=== PATIENT | male | born 1995 | race Caucasian/White ===

== ENCOUNTER 2018-10-02 13:50 | Observation (INO) ==
[2018-10-02 15:55] LABS: BASOPHILS % (AUTO) 0.3 % (0.2-1.0); HEMATOCRIT 47.9 % (42.0-54.0); HEMOGLOBIN 16.6 g/dL (13.5-18.0); LYMPHOCYTES # (AUTO) 0.9 X10^3/uL (1.3-2.9); LYMPHOCYTES % (AUTO) 10.3 % (21.0-51.0); MEAN CORPUSCULAR HEMOGLOBIN 30.7 pg (27.0-34.0); MEAN CORPUSCULAR HGB CONC 34.8 g/dL (33.0-35.0); MEAN CORPUSCULAR VOLUME 88.3 fL (80.0-100.0); MEAN PLATELET VOLUME 7.5 fL (7.4-11.0); MONOCYTES # (AUTO) 0.3 x10^3/uL (0.3-0.8); MONOCYTES % (AUTO) 3.4 % (0.0-13.0); NEUTROPHILS # (AUTO) 7.5 x10^3/uL (2.2-4.8); PLATELET COUNT 172 X10^3/uL (150.0-450.0); RED BLOOD COUNT 5.42 X10^6/uL (4.7-6.0); RED CELL DISTRIBUTION WIDTH 12.6 % (11.6-16.5); WHITE BLOOD COUNT 8.8 X10^3/uL (3.6-10.0)
[2018-10-02 16:17] LABS: ALANINE AMINOTRANSFERASE 14 Units/L (12-78); ALBUMIN 4.4 g/dL (3.4-5.0); ALKALINE PHOSPHATASE 71 Units/L (46-116); ASPARTATE AMINO TRANSFERASE 12 Units/L (15-37); BLOOD UREA NITROGEN 14 mg/dL (7-18); CALCIUM 9.7 mg/dL (8.5-10.1); CARBON DIOXIDE 26.6 mmol/L (21-32); CHLORIDE 101 mmol/L (98-107); FREE T4 (FREE THYROXINE) 1.11 ng/dL (0.76-1.46); MAGNESIUM 1.7 mg/dL (1.7-2.9); SODIUM 138 mmol/L (136-145); TOTAL PROTEIN 7.9 g/dL (6.4-8.2); TSH (3RD GENERATION) 0.543 uIU/mL (0.358-3.74); eGFR NON BLACK RACES > 60 (>60)
[2018-10-02 16:23] LABS: CKMB % 1.4 % (<4); CREATINE KINASE 70 Units/L (39-308); CREATINE KINASE MB < 1.0 ng/mL (0-4.0); TROPONIN I < 0.02 ng/mL (0-1.5)
[2018-10-02] MEDS: NS 1000 ML 1,000 ML IV SCH (17:00)
[2018-10-02] MEDS: PEPCID 20 MG IV PREMIX* 20 MG/50 ML BAG IV SCH (17:00)
[2018-10-02 17:06] LABS: AMYLASE 83 Units/L (25-115); LIPASE 100 Units/L (73-393)
--- NOTE | 2018-10-02 17:13 | DR.H&P ---
H&P - History & Physical for Day of: H&P Date: 10/02/18 - Chief Complaint Chief Complaint: chest pain - History of Present Illness History of Present Illness: 23 [address] CARRILLO OFFICE AFTER PRESENTING WITH CO CHEST PAIN, SEEN IN ER ON TUESDAY. HAD NORMAL CARDIAC ENZYMES AND ABNORMAL EKG, CHEST XRAY NORMAL. PT STATED HIS BLOOD PRESSURE WAS ELEVATED PRIOR TO ER VISIT. PT REPORTS BP AT HOME NORMAL 120'S/70S. BP 150/90 IN OFFICE. PT DENIES ANY HX OF HTN OR CARDIAC DISEASE, NON SMOKER. PT REPORTS WORKING OUTSIDE IN THE HEAT, DENIES DIZZINESS OR CRAMPING IN LIMBS. PT ADMITTED FOR EVALUATON AND TREATMENT OF CHEST PAIN. - Past Medical History Past Medical History: denies: CHF, Coronary Artery Disease, Hypertension - Family History Family Medical History: Hypertension - Social History Does patient currently use any type of tobacco product: No Have you used tobacco products in the last 12 months: No Type of Tobacco Use: None Does any household member use tobacco: No Alcohol Use: Rarely Drug Use: None - Medications Home Medications: No Known Drug Allergies Allergy (Verified 10/01/18 15:14) - Review of Systems Constitutional: No Symptoms Reported Eyes: No Symptoms Reported ENT: No Symptoms Reported Respiratory: No Symptoms Reported Cardiovascular: Chest Pain Gastrointestinal: No Symptoms Reported Genitourinary: No Symptoms Reported Musculoskeletal: No Symptoms Reported Skin: No Symptoms Reported Neurological: No Symptoms Reported - Physical Exam Vital Signs: Temperature 97.6 F Pulse Rate [Left Brachial] 66 Respiratory Rate 18 Blood Pressure [Left Arm] 136/86 Blood Pressure 145/82 O2 Sat by Pulse Oximetry 98 Oriented: Normal Eyes: Normal Ear: Normal Nose: Normal Throat: Normal Respiratory: Clear Throughout Cardiovascular: Normal. negative: Edema : Normal Auscultation: Bowel Sounds: Normal Palpation: Normal Tenderness: Normal Skin: Normal Musculoskeletal: Normal Psychiatric: Anxiety Affect: Anxious Speech Pattern: Clear, Appropriate - Assessment/Plan (1) Chest pain Status: Acute Plan: ADMIT SERIAL CE AND EKG. CXR ON ADMISSION, IV HYDRATION. BP CONTROL, CONTINUOUS CARDIAC MONITORING. ASPIRIN, STATIN. PRN SUPPLEMENTAL O2, PEPCID (2) Elevated blood pressure reading without diagnosis of hypertension Status: Acute (3) Abnormal LFTs Status: Acute - Allergies Allergies/Adverse Reactions: Allergies Allergy/AdvReac Type Severity Reaction Status Date / Time No Known Drug Allergies Allergy Verified 10/01/18 15:14
[2018-10-02] MEDS ORDERED: LEVSIN/MAALOX/LIDOC VISC PO ONE (17:18)
[2018-10-02] MEDS ORDERED: K-DUR TAB 20 MEQ PO PRN (18:19)
[2018-10-02] MEDS ORDERED: POTASSIUM CHLORIDE LIQ 20 MEQ UDC PO PRN (18:19)
[2018-10-02] MEDS ORDERED: K-RIDER 10 MEQ/NS 100 ML 10 MEQ/100 ML BAG IV PRN (18:19)
[2018-10-02] MEDS ORDERED: MICRO K EXTEN CAP 10 MEQ PO PRN (18:19)
[2018-10-02] MEDS ORDERED: POTASSIUM CHL 40 MEQ/NS 0.45% 500 ML IV PRN (18:19)
[2018-10-02] MEDS ORDERED: KLOR-CON PO PRN (18:19)
[2018-10-02] MEDS ORDERED: POTASSIUM CHL 60 MEQ/NS 0.45% 500 ML IV PRN (18:19)
[2018-10-02 18:24] VITALS: BMI 19.0
[2018-10-02] MEDS: ASPIRIN PO SCH (18:59)
[2018-10-02] MEDS ORDERED: CRESTOR TAB 10 MG PO SCH (21:00)
[2018-10-02] MEDS: MAGNESIUM SULFATE 1 GRAM/100 mL PREMIX 1 GM/100 ML BAG IV PRN ×2 (21:11→22:02)
[2018-10-02 21:52] LABS: BILIRUBIN,URINE NEGATIVE (NEGATIVE); BLOOD/HEMOGLOBIN,URINE NEGATIVE (NEGATIVE); GLUCOSE, URINE NEGATIVE (NEGATIVE); KETONES,URINE 3+ (NEGATIVE); LEUKOCYTE ESTERASE ,URINE NEGATIVE (NEGATIVE); NITRITES,URINE NEGATIVE (NEGATIVE); PROTEIN,URINE NEGATIVE (NEGATIVE); UROBILINOGEN,URINE 1+ (NORMAL)
[2018-10-02 22:03] LABS: APPEARANCE,URINE CLEAR (CLEAR); BACTERIA,URINE NEGATIVE /HPF (NEGATIVE); COLOR,URINE DARK YELLOW (YELLOW); MUCUS,URINE FEW /HPF (NEGATIVE); RBC,URINE NONE SEEN /HPF (NONE SEEN); SQUAMOUS EPITHELIAL CELL,UR NEGATIVE /HPF (NEGATIVE)
[2018-10-02 22:14] LABS: CKMB % 1.6 % (<4); CREATINE KINASE 63 Units/L (39-308); CREATINE KINASE MB < 1.0 ng/mL (0-4.0); TROPONIN I < 0.02 ng/mL (0-1.5)
[2018-10-03] MEDS: NS 1000 ML 1,000 ML IV SCH ×4 (01:01→10:41)
[2018-10-03 06:22] LABS: BASOPHILS % (AUTO) 0.6 % (0.2-1.0); EOSINOPHILS % (AUTO) 0.5 % (0.9-2.9); HEMATOCRIT 43.4 % (42.0-54.0); HEMOGLOBIN 15.4 g/dL (13.5-18.0); LYMPHOCYTES # (AUTO) 1.3 X10^3/uL (1.3-2.9); LYMPHOCYTES % (AUTO) 26.1 % (21.0-51.0); MEAN CORPUSCULAR HGB CONC 35.6 g/dL (33.0-35.0); MEAN CORPUSCULAR VOLUME 87.1 fL (80.0-100.0); MEAN PLATELET VOLUME 7.8 fL (7.4-11.0); MONOCYTES # (AUTO) 0.4 x10^3/uL (0.3-0.8); MONOCYTES % (AUTO) 9.1 % (0.0-13.0); NEUTROPHILS # (AUTO) 3.1 x10^3/uL (2.2-4.8); NEUTROPHILS % (AUTO) 63.7 % (42.0-75.0); PLATELET COUNT 161 X10^3/uL (150.0-450.0); RED BLOOD COUNT 4.98 X10^6/uL (4.7-6.0); RED CELL DISTRIBUTION WIDTH 12.5 % (11.6-16.5); WHITE BLOOD COUNT 4.9 X10^3/uL (3.6-10.0)
--- NOTE | 2018-10-03 06:26 | RAD ---
HISTORY: Chest pain Study: Chest AP portable Comparison: 10/01/2018 Findings: The heart is within normal limits in size. The rafael are normal. The lungs are hyperinflated but free of acute alveolar infiltrates. No pleural effusions are identified. The bony thorax is unremarkable. IMPRESSION: Lungs hyperinflated but clear Reported By:
[2018-10-03 06:52] LABS: ALANINE AMINOTRANSFERASE 13 Units/L (12-78); ALBUMIN 3.7 g/dL (3.4-5.0); ALKALINE PHOSPHATASE 61 Units/L (46-116); ASPARTATE AMINO TRANSFERASE 10 Units/L (15-37); BLOOD UREA NITROGEN 15 mg/dL (7-18); CALCIUM 8.9 mg/dL (8.5-10.1); CARBON DIOXIDE 27.3 mmol/L (21-32); CHLORIDE 105 mmol/L (98-107); CHOL/HDL RATIO 2.8 (0.0-5.0); CHOLESTEROL 153 mg/dL (0-200); CKMB % 1.6 % (<4); CREATINE KINASE 62 Units/L (39-308); CREATINE KINASE MB < 1.0 ng/mL (0-4.0); CREATININE 1.22 mg/dL (0.70-1.30); HDL CHOLESTEROL 54 mg/dL (40-60); MAGNESIUM 2.1 mg/dL (1.7-2.9); SODIUM 139 mmol/L (136-145); TOTAL PROTEIN 6.9 g/dL (6.4-8.2); TRIGLYCERIDES 51 mg/dL (0-150); TROPONIN I < 0.02 ng/mL (0-1.5); eGFR NON BLACK RACES > 60 (>60)
[2018-10-03] MEDS: PEPCID 20 MG IV PREMIX* 20 MG/50 ML BAG IV SCH (08:27)
[2018-10-03] MEDS: ASPIRIN PO SCH (08:27)
[2018-10-03] MEDS ORDERED: CARAFATE ORAL SUSP PO SCH (11:30)
[2018-10-03 12:07] VITALS: BP 114/59
== END 2018-10-03 12:05 | disposition home or self-care (01) ==
LOC: MED/SURG
PROVIDERS: ADMIT Internal Medicine; ATTEND Internal Medicine
DX: R94.5 Abnormal results of liver function studies; R94.31 Abnormal electrocardiogram [ECG] [EKG]; R03.0 Elevated blood-pressure reading, without diagnosis of hypertension; R07.89 Other chest pain
CPT/HCPCS: 36415; 71010; 71045; 80053; 80061; 80307; 81001; 82150; 82550; 82553; 83690; 83735; 84439; 84443; 84484; 85025; 85378; 85610; 85730; 87338; 93005; 94760; 96367; 96374; A4216; A4222; S0028; G0378; G0434; J3475; J7030